=== PATIENT | male | born 1995 | race Two or more races ===

== ENCOUNTER 2023-09-22 18:42 | Emergency (ER) | payer MEDICAID ==
[~2023-09-22] VITALS: Ht 165.1 cm; Wt 50.0 kg
[2023-09-22 19:04] VITALS: BP 141/85; PULSE 88; RESP 20; O2SAT 98
[2023-09-22 20:04] LABS: Basophils # (auto) 0 10 ^3/uL (0-0.2); Basophils % (auto) 0.8 % (0.0-2.0); Eosinophils # (auto) 0.1 10 ^3/uL (0-0.8); Eosinophils % (auto) 2.3 % (0.0-7.0); Hemoglobin 14.6 g/dL (13.5-17.5); Lymphocytes # (auto) 2.4 10 ^3/uL (0.4-5.4); Lymphocytes % (auto) 39.4 % (10.0-50.0); Mean Corpuscular Hemoglobin 27.1 pg (28.0-32.0); Mean Corpuscular Hgb Conc. 33.1 g/dL (32.0-36.0); Mean Corpuscular Volume 82.1 fL (80.0-100.0); Monocytes # (auto) 0.7 10 ^3/uL (0-1.3); Neutrophils # (auto) 2.8 10 ^3/uL (1.6-8.6); Neutrophils % (auto) 46.5 % (37.0-80.0); Nucleated Red Blood Cells % 0.1 %; Red Blood Cells 5.36 10^6/uL (4.5-5.90); Red Cell Distribution Width 13.4 % (11.8-14.3)
[2023-09-22 20:15] LABS: Chloride 105 mmol/L (98-107); Potassium 3.9 mmol/L (3.5-5.1); Sodium 139 mmol/L (136-145)
[2023-09-22 20:16] LABS: Anion Gap 2 (5-15); Carbon Dioxide 32 mmol/L (20-30)
[2023-09-22 20:17] LABS: Calcium 9.8 mg/dL (8.5-10.1)
[2023-09-22 20:21] LABS: BUN/Creatinine Ratio 11.5 (10.0-20.0); Blood Urea Nitrogen 11 mg/dL (9-23); Glucose 85 mg/dL (74-106)
[2023-09-22 20:22] LABS: Blood Alcohol < 3.0 mg/dL (<10)
[2023-09-22 20:23] LABS: Acetaminophen < 2.0 UG/ML (10.0-20.0)
[2023-09-22 20:26] LABS: Salicylate < 3.0 mg/dL (2.8-20.0)
== END 2023-09-22 21:47 | disposition left against medical advice (07) ==
LOC: EDBD 18:42 → ER 18:49
DX: F31.9 Bipolar disorder, unspecified (principal); F20.9 Schizophrenia, unspecified
CPT/HCPCS: 36415; 80048; 80320; 80329; 85025